=== PATIENT | male | born 1960 | race Caucasian/White ===

== ENCOUNTER 2018-09-29 05:35 | Day surgery (SDC) | payer OTHER | END 2018-09-29 10:04 | disposition home or self-care (01) | LOC: CIR.AMB 05:35 | DX: N47.6 Balanoposthitis (principal); N47.1 Phimosis ==

== ENCOUNTER 2021-07-18 13:17 | Emergency (ER) | payer OTHER ==
[~2021-07-18] VITALS: Ht 172.7 cm; Wt 112.0 kg
[2021-07-18] MEDS ORDERED: KETO10TA2 PO (16:49)
[2021-07-18] MEDS ORDERED: CIPRO500 MG PO (16:49)
== END 2021-07-18 16:55 | disposition home or self-care (01) ==
LOC: ER 13:17
DX: N39.0 Urinary tract infection, site not specified (principal); K80.20 Calculus of gallbladder without cholecystitis without obstruction; N28.1 Cyst of kidney, acquired